=== PATIENT | female | born 1995 | race Caucasian/White ===

== ENCOUNTER 2016-04-01 18:28 | Emergency (ER) | payer MEDICAID, OTHER ==
[2016-04-01 18:38] VITALS: TEMP 98.4; BMI 20.5
[2016-04-01] MEDS ORDERED: DIPHENHYDRAMINE 25 MG CAP PO ONE (19:50)
[2016-04-01] MEDS ORDERED: PREDNISONE 20 MG TAB PO ONE (19:50)
--- NOTE | 2016-04-01 19:54 | EDPRACDOC ---
- General Information Chief Complaint: Skin Rash (not drug induced) Stated Complaint: RT FOREARM WITH PAIN REDNSS & SWELLING Time Seen by Provider: 04/01/16 19:47 Mode Of Arrival: Car Home Medications: Home Medications Ondansetron HCl [Zofran] 4 mg PO Q6H PRN #15 tab 10/14/13 Hydrocodone Bit/Acetaminophen [Hydrocodon-Acetaminophen 5-325] 1 - 2 tab PO Q4H PRN #30 tab 02/23/14 Hydroxyzine Pamoate [Vistaril] 25 mg PO DAILY 02/23/14 Ibuprofen Tablet [Motrin] 800 mg PO TID #30 tab 02/23/14 Diphenhydramine HCl [Benadryl Allergy] 25 mg PO Q6H PRN #30 tablet 04/01/16 Medroxyprogesterone Acetate [Provera] 10 mg PO DAILY #7 tablet 04/01/16 Prednisone [Deltasone, Orasone] 20 mg PO DAILY #20 tab 04/01/16 Ranitidine [Zantac] 150 mg PO BID #14 tablet 04/01/16 Allergies/Adverse Reactions: Allergies Allergy/AdvReac Type Severity Reaction Status Date / Time No Known Allergies Allergy Verified 04/01/16 18:37 - History of Present Illness Onset: PHOTOGRAPHIC DOUBLE HPI: Pt states sudden onset hives R forearm with itching and syncope. Pt also c/o vaginal bleeding x 4 months with 7-8 pads per hour. Denies fever, cough, congestion, cp, sob, abd pain, n/v, changes in bowel or bladder. Rash Location: Reports: Arms Quality: Reports: Pruritic, Red Known Exposure To: Reports: Other (unknown) Relevant History of: Reports: None Irritability: None Pain Severity: None Associated Signs and Symptoms: Reports: None ED Past Medical History - History Reviewed Yes Nurses notes reviewed and agree except as marked - Patient Medical History Psychological History: Reports: Depression, Anxiety, Bipolar Disorder Systemic History: Denies: Cancer, Anemia, Lupus - Family Medical History Reports: Hypertension. Denies: Diabetes, Cancer, Stroke, Cardiac Disorders EDM Review of Systems - Review of Systems Constitutional: No Symptoms Reported. negative: Fever, Chills, Weakness, Fatigue, Loss of Appetite Ears: No Symptoms Reported. negative: Pain, Hearing Loss, Drainage, Ear Pulling Throat: No Symptoms Reported. negative: Pain, Swelling Nose: No Symptoms Reported. negative: Congestion, Bleeding, Discharge, Injection, Swelling, Deformity, Ecchymosis, Tender, Abrasion, Laceration Mouth: No Symptoms Reported. negative: Pain, Drooling Respiratory: No Symptoms Reported. negative: Cough, Brassy Cough, Barky Cough, Shortness of Breath, Wheezing, Hemoptysis Cardiovascular: Syncope Gastrointestinal: No Symptoms Reported. negative: Pain, Constipation, Nausea, Vomiting, Diarrhea, Melena, Formula Intolerance Genitourinary: Bleeding. negative: No Symptoms Reported, Dysuria, Discharge, Frequency, Hematuria, , Testicular Pain Neurological: No Symptoms Reported. negative: Headache, Dizziness, Seizure, Numbness, Weakness, Speech Difficulty, Gait Difficulty Musculoskeletal: No Symptoms Reported. negative: Neck, Chestwall, Ribs, Back, Shoulder, Arm, Elbow, Forearm, Wrist, Hand, Pelvis, Hip, Femur, Knee, Leg, Ankle , Foot Integumentary: Itching, Rash Allergic/Immunologic: Hives Hematologic: No Symptoms Reported. negative: Lymphadenopathy, Easy Bruising, Easy Bleeding Psychiatric: No Symptoms Reported. negative: Anxiety, Depression, Hallucinations, Insomnia, Suicidal - Physical Exam Constitutional: Alert Oriented to: Time, Person, Place Last recorded Vital Signs: Last Vital Signs Temp 98.4 F 04/01/16 18:33 Pulse 76 04/01/16 18:33 Resp 20 04/01/16 18:33 BP 122/80 04/01/16 18:33 Pulse Ox 98 04/01/16 18:33 Oxygen Pulse Oxygen Saturation 98 O2 Device Room Air Oxygen Flow Rate Fraction of Inspired Oxygen ( FIO2) - HEENT Head: Normal ( normocephalic) Eye Exam: Normal (PERRL, EOMI, Sclera white) Oropharynx: Normal (Pharynx:Moist without exudate,Gums-no swelling) Tympanic Membrane: Normal ENT EAC: Normal Nose: No Symptoms Reported (septum midline) Neck: Normal (FROM, trachea at midline) - Respiratory/Cardiovascular Respiratory: Normal - CTA (BBS clear to auscultation without adventitious sounds ) Cardiovascular: Normal (RRR without murmur, gallop or rub) - GI Auscultation: Normal (NABS) Palpation: Normal (Soft,No rebound or guarding, non distended) Tenderness: Non tender - Musculoskeletal Back: Normal (Non-Tender) Extremities: Normal (Normal tone, Pulses 2+ No cyanosis or edema, FROM) - Integumentary Skin: Rash (Bilateral forearms uticaria, worse R >L) Lymphatics: Normal (no adenopathy) - Neurologic Memory Impaired: Normal Motor Function: Normal (Normal tone, Pulses 2+ No cyanosis or edema, FROM) Mood Description: Normal Perception: Normal - Differential Diagnosis Cellulitis, Contact dermatitis, Urticaria - Results 04/01/16 20:52 04/01/16 20:52 04/01/16 22:51 Laboratory Results - last 24 hr 04/01/16 04/01/16 04/01/16 20:52 20:52 21:02 WBC 9.0 RBC 4.90 Hgb 13.0 Hct 39.8 MCV 81 MCH 26.5 L MCHC 32.7 L RDW 14.7 H Plt Count 400 MPV 7.7 Neut % (Auto) Cancelled Lymph % (Auto) Cancelled Gates % (Auto) Cancelled Eos % (Auto) Cancelled Baso % (Auto) Cancelled Absolute Neuts (auto) Cancelled Absolute Lymphs (auto) Cancelled Seg Neuts % (Manual) 51 Band Neutrophils % 0 Lymphocytes % (Manual) 44 Monocytes % (Manual) 3 Eosinophils % (Manual) 1 Basophils % (Manual) 1 Absolute Neutrophils 4.59 Absolute Lymphocytes 3.96 Platelet Estimate Norm RBC Morphology Norm PT 11.7 H INR 1.1 APTT 29.0 Sodium 139 Potassium 4.0 Chloride 102 Carbon Dioxide 24 Anion Gap 17 H BUN 21 H Creatinine 0.70 Estimated GFR (MDRD) > 60 Glucose 101 H Calculated Osmolality 271 Calcium 9.7 Total Bilirubin 0.3 AST 56 H ALT 55 H Alkaline Phosphatase 71 Total Protein 8.2 Albumin 4.2 Urine Color Urine Clarity Urine pH Ur Specific [place] Urine Protein Urine Glucose (UA) Urine Ketones Urine Occult Blood Urine Nitrite Urine Bilirubin Urine Urobilinogen Ur Leukocyte Esterase Urine RBC Urine WBC Ur Epithelial Cells Urine Bacteria Urine Test 04/01/16 04/01/16 22:08 22:08 WBC RBC Hgb Hct MCV MCH MCHC RDW Plt Count MPV Neut % (Auto) Lymph % (Auto) Gates % (Auto) Eos % (Auto) Baso % (Auto) Absolute Neuts (auto) Absolute Lymphs (auto) Seg Neuts % (Manual) Band Neutrophils % Lymphocytes % (Manual) Monocytes % (Manual) Eosinophils % (Manual) Basophils % (Manual) Absolute Neutrophils Absolute Lymphocytes Platelet Estimate RBC Morphology PT INR APTT Sodium Potassium Chloride Carbon Dioxide Anion Gap BUN Creatinine Estimated GFR (MDRD) Glucose Calculated Osmolality Calcium Total Bilirubin AST ALT Alkaline Phosphatase Total Protein Albumin Urine Color Pale yellow Urine Clarity Sl cldy Urine pH 6.0 Ur Specific [place] 1.005 Urine Protein Neg Urine Glucose (UA) Neg Urine Ketones Neg Urine Occult Blood 3+ H Urine Nitrite Neg Urine Bilirubin Neg Urine Urobilinogen <2.0 Ur Leukocyte Esterase Neg Urine RBC 5-10 H Urine WBC 0-2 Ur Epithelial Cells 1+ Urine Bacteria Few Urine Test Neg - EKG EKG #1 EKG Time: 20:18 Rate: bpm: 60 [place]: Normal Rhythm: NSR Block: None ST: Normal - Diagnostic Imaging Abdomen Image interpreted by: Radiologist IMPRESSION: 1. No explanation for abnormal vaginal bleeding. 2. 27 mm hemorrhagic cyst in the left ovary. - Additional Information Discussed with Dr Veronica, need US to r/o retained products Decision Time to Discharge: 22:51 - Departure Disposition: Home Condition: Stable Final Diagnosis: Urticarial dermatitis, DUB (dysfunctional uterine bleeding) Instructions: Dysfunctional Uterine Bleeding (ED), Urticaria (ED) Education/Counseling Given To: Patient Education/Counseling Given Regarding: Diagnosis, Treatment, Follow Up Referrals: None,No Provider [Primary Care Provider] - One Week Juan Manuel Gutierrez MD [Staff Physician] - One Week Micheal Castelan MD [Staff Physician] - One Week Prescriptions: New Diphenhydramine HCl [Benadryl Allergy] 25 mg PO Q6H PRN #30 tablet PRN Reason: Itching Prednisone [Deltasone, Orasone] 20 mg PO DAILY #20 tab Ranitidine [Zantac] 150 mg PO BID #14 tablet Medroxyprogesterone Acetate [Provera] 10 mg PO DAILY #7 tablet No Action Ondansetron HCl [Zofran] 4 mg PO Q6H PRN #15 tab PRN Reason: Nausea/Vomiting Hydroxyzine Pamoate [Vistaril] 25 mg PO DAILY Hydrocodone Bit/Acetaminophen [Hydrocodon-Acetaminophen 5-325] 1 - 2 tab PO Q4H PRN #30 tab PRN Reason: Pain Ibuprofen Tablet [Motrin] 800 mg PO TID #30 tab Additional Instructions: Return to the Emergency Department for increasing or different abdominal pain, vaginal bleeding that soaks two pads per hour for two hours, feeling like you might pass out, or any concerns.
[2016-04-01 21:09] LABS: MPV 7.7 fL (7.4-10.4)
[2016-04-01 21:12] LABS: BLOOD UREA NITROGEN 21 MG/DL (7-17); CALCIUM 9.7 MG/DL (8.4-10.2); CALCULATED OSMOLALITY 271 MOs/Kg (270-290); CHLORIDE 102 mEq/L (98-107); GLUCOSE 101 MG/DL (70-99); SODIUM LEVEL 139 mEq/L (137-146); TOTAL PROTEIN 8.2 G/DL (6.3-8.2)
[2016-04-01 21:22] LABS: PT-INR 1.1
[2016-04-01 22:15] LABS: SEG NEUTROPHIL 51 % (45-76)
[2016-04-01 22:22] LABS: LEUKOCYTES/URINE NEG (NEGATIVE); NITRITE/URINE NEG (NEGATIVE); URINE OCCULT BLOOD 3+ (NEG/TRACE); WBC/URINE 0-2 (0-5)
--- NOTE | 2016-04-01 22:49 | DIRPT ---
CLINICAL DATA: Vaginal bleeding and pain since December after depot shot. EXAM: TRANSABDOMINAL AND TRANSVAGINAL ULTRASOUND OF PELVIS DOPPLER ULTRASOUND OF OVARIES TECHNIQUE: Both transabdominal and transvaginal ultrasound examinations of the pelvis were performed. Transabdominal technique was performed for global imaging of the pelvis including uterus, ovaries, adnexal regions, and pelvic cul-de-sac. It was necessary to proceed with endovaginal exam following the transabdominal exam to visualize the endometrium. Color and duplex Doppler ultrasound was utilized to evaluate blood flow to the ovaries. COMPARISON: 12/14/2013 FINDINGS: Uterus Measurements: 7 x 4 x 5 cm. No fibroids or other mass visualized. Endometrium Thickness: 3 mm. Trace endocervical fluid. Right ovary Measurements: 39 x 24 x 18 mm. Normal appearance/no adnexal mass. Left ovary Measurements: 40 x 22 x 37 mm. Size difference related to 27 mm cyst/dominant follicle with low level internal echoes and debris layer. No associated septation or mural nodularity. Pulsed Doppler evaluation of both ovaries demonstrates normal low-resistance arterial and venous waveforms. Other findings No abnormal free fluid. IMPRESSION: 1. No explanation for abnormal vaginal bleeding. 2. 27 mm hemorrhagic cyst in the left ovary. Electronically Signed By: Jarek Yusuf M.D. On: 04/01/2016 22:45
[2016-04-01 23:02] VITALS: BP 120/76; PULSE 70
[2016-04-03 21:37] LABS: CHLAMY BY NUCLEIC ACID AMP Negative (Negative)
[2016-04-04 11:43] LABS: GC BY NUCLEIC ACID AMP Negative (Negative)
== END 2016-04-01 22:58 | disposition home or self-care (01) ==
LOC: EEVIPCON 18:28 → EDMC 18:28
DX: L30.9 Dermatitis, unspecified (principal); N93.8 Other specified abnormal uterine and vaginal bleeding
CPT/HCPCS: 36415; 76830; 76856; 80053; 81001; 81025; 85007; 85027; 85610; 85730; 87210; 87220; 87491; 87591; 93005; 93975; 99283; J3490